=== PATIENT | female | born 1975 ===

== ENCOUNTER 2016-12-12 09:42 | Day surgery (SDC) | payer OTHER ==
[2016-12-12] MEDS ORDERED: PREGABALIN 150 MG CAP PO ONE (09:57)
[2016-12-12] MEDS ORDERED: ACETAMINOPHEN 500 MG TAB PO ONE (09:57)
[2016-12-12] MEDS ORDERED: ceFAZolin 2 GM/DEXTROSE 100 ML IV ONE (09:57)
--- NOTE | 2016-12-12 09:57 | PDGENHP ---
History and Physical - Chief Complaint LEFT HIP PAIN - History of Present Illness 1. Bilateral~Femoroacetabular impingement (JOSE) Cam type 2. Bilateral~Borderline Hip Dyplasia, labral tears, cartilage damage HISTORY OF PRESENT ILLNESS: Olgais a 41 y.o.~active female~who I have had the pleasure to consult on today.~I have enjoyed meeting her. She~lives in [facility]. 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 ~She~is ; she~has one~child. ~Olgaenjoys biking, hiking. Jennifer's left~hip pain started several years ago, with no~recalled trauma or injury, and with no~previous complaints.~Olgahas~a known history of hip dysplasia. Presentation today is of~anterior and lateral left~hip pain. ~The hip does~wake her~at night and does~click and catch on her. Sitting can be a real struggle~ for her. Olgadoes~report suffering from lower back pain episodes. Olgahas not~participated in physical therapy and has not~tried other conservative measures. Olgahas~utilized medication for pain management, including NSAID. Olgahas used medication intermittently for 2-3 years. Olgadenies issues with the right~hip. Although she thinks it is right at the start of becoming a little painful. Olgaunderstands that she~has a hip and pelvis problem which should be researched and wishes to get a better understanding of her~hip status, followed by an establishment of a treatment strategy, hoping sheJoewould be able to get back to her~well being active life. History: Past medical history: ~ None which is relevant Relevant familial history: Cancer, DM Past surgical history: None Olgahas never received general anesthesia. I have reviewed, verified and agree with the past medical, surgical, family and social history. Current Medications:Joehas a current medication list which includes the following prescription(s): zolpidem tartrate. ALLERGIES:~has No Known Allergies. Objective: Physical Examination: Olgais 5~feet 6~inches tall and weighs~170~Lbs. Olgais AAO x3; she~is well- nourished, in NAD. Skin is warm and dry. ~Breathing is non-labored. ~CV with RRR by pulse. Abdomen is soft, NTND. Currently, she~walks with a normal~gait. Trendelenburg sign is negative~and proprioception~is normal, both~sides. She~presents~with severe~signs of joint laxity.~Beightons Score: 7 Lower spine examination is negative~for sciatic or femoral nerve irritation with negative~SLR &~femoral stretch tests. Range of motion of the spine is normal~for flexion, extension, and rotations, with no~associated pain. Strength, Sensation and pulses are normal - bilaterally Ankles and knees exams are normal~and no~mal-alignment is evident. She~has~left~1~cm short leg length discrepancy. Thigh circumference is symmetric~with no evidence for muscle atrophy~on both~ sides. Hip ROM (degrees): FL ER At 90~hip FL IR At 90~hip FL AB AD EX IR Neutral hip ER Neutral hip R 110 55 40 45 15 5 55 45 L 115 55 45 45 10 5 60 35 Specific hip and pelvis tests: Quadrant LUCIANO Roll Add. Longus R +++ +++ Negative Negative L +++ +++ Negative + Glut. Med ITB Pos. Imp R Negative 5/5 strength Negative 5/5 strength Negative L Negative 5/5 strength Negative 5/5 strength +++ Squeeze test measured normal Bony Symphysis pubis is pain free~to touch while concentric activity of the rectus abdominis, does not~produce pain at its insertion. Ilio Psos specific tests are negative for pain during cycling for both hips~and remarkable for non painful snap~on the left HF has pain but good strength the left hip. Anterior and Lateral~capsule tenderness on both hips Greater trochanteric burse is painful~on the left hip. Piriformis tests: FAIR is negative, with no~local signs of neuritis related to sciatic nerve. SIJs examination is normal~with normal~LUCIANO in relation and local tenderness. Hamstrings tests are negative~functional contraction and negative~tendinopathy both hips. On a daily basis, the following percentages reflect Jennifer's overall total pain: Deep hip: 50% GT: 25% IP: 25% Imaging: Radiology studies which I~have personally reviewed, analyzed and measured are below: XR: AP of the hip and pelvis: Performed in a good~technique Coccyx to pubic symphysis distance 1.8~cm. 5~degrees caudal [place]~Lines are interrupted. Minimal~Pathological signs are seen in the Symphysis Pubis. Minimal~Pathological signs are seen at the Ischial~tuberosity. ~ Specific measurements show: NSA~ LCE Sourcil~Angle Sharp's angle Lat. Cam Lat. Pincer C.Over~sign Head~Coverage % ATDmm R N 23 7 40 - - - 68 N L N 21 8 43 - - - 70 N Pos. wall sign ISS NAD ~~Dysplasia Comments R + Negative 15~mm + L + Negative 14~mm + Sclerosis Sup. Lat. OA Cysts Joint Space-WBZ Joint Space-Medial R Negative Negative Negative 6.5~mm 5.5~mm L Negative Negative Negative 5.4~mm 5~mm X Table lateral: Anterior cam lesion is seen~on both hips. Alpha Angle: ~ Right 59~dergrees Left 63~degrees MRI Left Hip~shows:~labral tear, subchondral~cyst, cartilage intact CT MEASUREMENTS: Right hip: Lateral center edge angle: 22 degrees Anterior center edge angle: 52 degrees Equatorial acetabular version angle: 26 degrees anteverted. Cranial acetabular version angle: 4 degrees anteverted. Femoral neck shaft angle: 136 degrees Femoral neck version angle: 1 degree anteverted. Right femoral torsion measures 16 degrees. Left hip: Lateral center edge angle: 22 degrees Anterior center edge angle: 50 degrees Equatorial acetabular version angle: 20 degrees anteverted. Cranial acetabular version angle: 5 degrees anteverted. Femoral neck shaft angle: 137 degrees Femoral neck version angle: 1 degree anteverted. Left femoral torsion measures 18 degrees. Impression and plan:~ Jennifer~is a 41 y.o.~active female~suffering from symptomatic left~hip pain due to Bilateral~Femoroacetabular impingement (JOSE) Cam type, Bilateral~Borderline Hip Dyplasia~causing significant disability to her~and altering~her~sport and life activities. Physical examination, imaging, and her~story correspond with the diagnosis mentioned above. I explained that hip dysplasia is a condition wherein the hip joint has excessive play~and instability due to a variety of factors, including the depth and adequacy of the socket, the orientation of the femur bone, and ligament laxity around the hip joint. Dysplasia ranges in severity from borderline to brionna, with treatment options being specific to the specific nature of the problem. Left untreated, the instability in the hip joint can cause progressive tearing of the labrum and deterioration of the surface cartilage, ultimately resulting in progressive osteoarthritis of the hip. I explained that femoroacetabular impingement (JOSE - Cam type) arises due to a bony or soft tissue conflict between the femur (ball) and acetabulum (socket) caused by an abnormality in the shape of the femoral head and neck. Over time, repetitive impingement can result in damage to the labrum and adjacent surface cartilage within the socket, ultimately giving rise to progressive osteoarthritis of the hip. I explained that although a labral tear can be a source of pain, it is rarely the root of the problem and typically occurs secondary to an underlying abnormality in the shape and mechanics of the hip joint. I reviewed conservative treatment options for Dysplasia and JOSE including activity modification to avoid positions of impingement or instability, physical therapy, non-steroidal anti-inflammatory medications, and various injections (corticosteroid and PRP) aimed at reducing inflammation in the hip joint or/and preventing dynamic instability and impingement. PRP injections may promote healing and reduce symptoms in certain cases but it will not repair chronically damaged tissue. Although these measures may help to buy time~and reduce current level of symptoms, they are not a definitive solution to the problem given the underlying abnormality in the shape of the hip joint. Patients who have failed conservative management and continue to experience symptoms are candidates for definitive surgical treatment, which may consist of hip arthroscopy alone or in combination with more invasive bony realignment procedures of the hip socket and/or femur called periacetabular osteotomy (HOLGER) or derotational femoral osteotomy (DFO). Hip arthroscopy typically includes treating the labrum with either repair or reconstruction of the torn labrum; as well as addressing the underlying abnormalities by restoring the normal shape to the hip joint. If the cartilage is damaged a Microfracture surgical procedure may also be necessary to help stimulate the growth of fibrocartilage. If a patient requires a labral reconstruction or a Microfracture, the initial rehabilitation from the surgery may take longer, but the keno terminal operator results are typically favorable. I reviewed the technical aspects of periacetabular osteotomy (HOLGER) including risks, benefits, and expected course of recovery. Jennifer~understands that HOLGER is an inpatient procedure carried out through two medium sized incisions on the front and back of the hip joint. The hip socket is cut, realigned, and stabilized with 2 ~3 internal screws. Risks include infection, bleeding, injury to nearby nerves or vessels, stiffness, persistent pain, instability, failure of bony healing, implant related complications, and venous thromboembolic disease. Rarely, revision surgery may be required to address these problems. Risks, potential complications, side effects and recovery from surgical procedure were discussed in length. We explained how this surgery is an open procedure, and though patients tend to do well in the long-term, it involves significant pain in the first 2-4 weeks post-op and a rather lengthy rehab.~Overall recovery takes approximately 6 ~12~months depending on the extent of damage and degree of repair. Jennifer~understands that she~will undergo hip arthroscopy 1 week prior to the HOLGER to address damage inside the hip joint. Jennifer~understands that hip arthroscopy and HOLGER are two separate procedures that are best performed one week apart, with the arthroscopy commencing first to "tighten up" any pathology evident in the hip joint (labral repair, etc.) and the HOLGER open procedure occurring 7-10 days later to realign the acetabulum. I reviewed the technical aspects of hip arthroscopy including risks, benefits, and expected course of recovery. Jennifer~understands that hip arthroscopy is a minimally invasive outpatient procedure carried out through small incisions on the outer aspect of the hip joint. During surgery, the labral tear will be identified and either repaired or reconstructed~using bone anchors and suture material. Additionally, any excessive bone will be removed with a high-speed jarad to reshape the hip joint and restore normal anatomy. Risks include infection, bleeding, injury to nearby nerves or vessels, stiffness, persistent pain, instability, venous thromboembolic disease, and traction related complications including temporary foot numbness. Rarely, revision surgery may be required to address these problems. Overall recovery takes approximately 4~~ 8~months depending on the extent of damage and degree of repair. In the event that the labral tissue quality is inadequate for successful repair and healing, Jennifer~understands that a labral reconstruction will be performed. This procedure entails placing a cadaver tissue graft within the hip joint and stabilizing it with bone anchors to build a new labrum. The overall recovery time for labral reconstruction is similar to that of labral repair, although the surgical procedure takes longer to perform. Jennifer~will review the info presented. In order to obtain more detailed information regarding the alignment, orientation, and shape of the bony hip and pelvis I will order a CT scan to be performed. The results of the CT scan, including femoral torsion and acetabular version measured values and 3D images, will aid me in deciding on the best treatment strategy and surgical pre-planning. Olgawill talk with our surgical supplies sterilizer about possible surgery dates. Olgais happy with this plan. I have also supplied her~with handouts, outlining the expected surgical treatment and rehab involved. I wish~JenniferJoeall the best, ~~ Jr Meredith MD History Information - Allergies/Home Medication List Allergies/Adverse Reactions: No Known Allergies Allergy (Unverified 11/14/16 11:09) Home Medications: Amphet Asp and D/Amphet [Adderall 10 MG (*)] 10 mg PO TID 11/14/16 [Last Taken Unknown] Magnesium Oxide [Magnesium Oxide 400 mg (*)] 400 mg PO HS 11/14/16 [Last Taken Unknown] Zolpidem Tartrate [Ambien 5MG (*)] 10 mg PO HS 11/14/16 [Last Taken Unknown] I have personally reviewed and updated: medical history - Social History Smoking Status: Never smoked Review of Systems Review of Systems: Physical Exam Physical Exam:
--- NOTE | 2016-12-12 12:09 | PDANEPAE ---
ANE History of Present Illness 41 year old female with left hip pain presents for left hip arthroscopy with femoroplasty. ANE Past Medical History - Cardiovascular History Hx Hypertension: No Hx Arrhythmias: No Hx Chest Pain: No Hx Coronary Artery / Peripheral Vascular Disease: No Hx CHF / Valvular Disease: No Hx Palpitations: No - Pulmonary History Hx COPD: No Hx Asthma/Reactive Airway Disease: No Hx Recent Upper Respiratory Infection: No Hx Oxygen in Use at Home: No Hx Sleep Apnea: No Sleep Apnea Screening Result - Last Documented: Negative - Neurologic History Hx Cerebrovascular Accident: No Hx Seizures: No Hx Dementia: No - Endocrine History Hx Diabetes: No Hypothyroid: No Hyperthyroid: No Obesity: no - Renal History Hx Renal Disorders: Yes Renal History Comment: MULTIPLE UTIs - Liver History Hx Hepatic Disorders: No - Neurological & Psychiatric Hx Hx Neurological and Psychiatric Disorders: Yes Neurological / Psychiatric History Comment: ANXIETY & DEPRESSION - Cancer History Hx Cancer: No - Congenital Disorder History Hx Congenital Disorders: No - GI History GERD: no Hx Gastrointestinal Disorders: No - Other Health History Other Health History: PSORIASIS SCALP AND BACK - Chronic Pain History Chronic Pain: No - Surgical History Prior Surgeries: NONE ANE Review of Systems Review of Systems: - Exercise capacity Exercise capacity: >=4 METS METS (RN): 4 METS ANE Patient History - Allergies Allergies/Adverse Reactions: No Known Allergies Allergy (Unverified 11/14/16 11:09) - Home Medications Home medications: home medication list seen and reviewed Home Medications: Amphet Asp and D/Amphet [Adderall 10 MG (*)] 10 mg PO TID 11/14/16 [Last Taken Unknown] Magnesium Oxide [Magnesium Oxide 400 mg (*)] 400 mg PO HS 11/14/16 [Last Taken Unknown] Zolpidem Tartrate [Ambien 5MG (*)] 10 mg PO HS 11/14/16 [Last Taken Unknown] - NPO status NPO Status: no food or drink >8 hours - Anes Hx Anes Hx: no prior problems - Smoking Hx Smoking Status: Never smoked Marijuana use: No - Family Anes Hx Family Anes Hx: neg - N/A Family Hx Anesthesia Complications: NONE ANE Labs/Vital Signs - Vital Signs Vital Signs: reviewed preoperatively; see RN documention for details Height: 167.64 cm Weight: 74.843 kg ANE Physical Exam - Airway Neck exam: FROM Mallampati Score: Class 2 Mouth exam: normal dental/mouth exam - Pulmonary Pulmonary: no respiratory distress - Cardiovascular Cardiovascular: regular rate and rhythym - ASA Status ASA Status: I ANE Anesthesia Plan Anesthesia Plan: general endotracheal anesthesia Total IV Anesthesia: No
[2016-12-12] MEDS ORDERED: EPINEPHrine 30 MG/30 ML MDV ONE (12:34)
[2016-12-12] MEDS ORDERED: SCOPOLAMINE HYDROBROMIDE 1 MG/3 DAYS PATCH TD ONE (12:34)
[2016-12-12] MEDS ORDERED: MIDAZOLAM 2 MG/2 ML VIAL ONE (12:34)
[2016-12-12] MEDS ORDERED: BUPIVACAINE 0.25% 30 ML SDV ONE ×2 (12:34→13:17)
[2016-12-12] MEDS ORDERED: MIDAZOLAM 2 MG/2 ML VIAL IVP ONE (12:35)
[2016-12-12] MEDS ORDERED: PROPOFOL/EMULSION 500 MG/50 ML BOTTLE IV ONE (12:40)
[2016-12-12] MEDS ORDERED: fentaNYL 100 MCG/2 ML INJ ONE ×2 (12:41→15:22)
[2016-12-12] MEDS ORDERED: ROCURONIUM 100 MG/10 ML VIAL ONE (12:41)
[2016-12-12] MEDS ORDERED: PROPOFOL 200 MG/20 ML VIAL ONE (12:41)
[2016-12-12] MEDS ORDERED: LIDOCAINE 2% 5 ML SDV ONE (12:42)
[2016-12-12] MEDS ORDERED: SCOPOLAMINE HYDROBROMIDE 1 MG/3 DAYS PATCH TD SCH (12:45)
[2016-12-12] MEDS ORDERED: ONDANSETRON 4 MG/2 ML VIAL IVP PRN (13:54)
[2016-12-12] MEDS ORDERED: LR 500 ML IV PRN (13:54)
[2016-12-12] MEDS ORDERED: NALOXONE HCL 0.4 MG/ML INJ IVP PRN (13:54)
[2016-12-12] MEDS ORDERED: ONDANSETRON 4 MG/2 ML VIAL ONE (14:32)
[2016-12-12] MEDS ORDERED: SUGAMMADEX SODIUM 200 MG/2 ML VIAL IVP ONE (14:32)
[2016-12-12] MEDS ORDERED: ceFAZolin 1 GM VIAL ONE ×2 (14:43)
[2016-12-12] MEDS: fentaNYL 100 MCG/2 ML INJ IVP PRN ×2 (15:23→15:34)
[2016-12-12 15:44] VITALS: TEMP 98.4
[2016-12-12] MEDS ORDERED: OXYCODONE/APAP 5/325 TAB ONE ×2 (15:47→17:11)
[2016-12-12] MEDS ORDERED: HYDROmorphONE/DILAUDID 1 MG/ML INJ ONE (15:53)
[2016-12-12] MEDS: HYDROmorphONE/DILAUDID 1 MG/ML INJ IVP PRN ×2 (15:54→16:08)
[2016-12-12] MEDS: OXYCODONE/APAP 5/325 TAB PO PRN ×2 (15:56→17:12)
[2016-12-12 16:45] VITALS: RESP 14
[2016-12-12 16:54] VITALS: BP 94/71; PULSE 88; O2SAT 98
[2016-12-12] MEDS ORDERED: CEPACOL LOZENGE PO ONE ×2 (17:07→17:30)
--- NOTE | 2016-12-12 22:19 | POSTANESTH ---
Post Anesthetic Evaluation Cardiovascular Status: Normal, Stable, Similar to Pre-Op Cond Respiratory Status: Normal, Stable, Similar to Pre-op Cond. Level of Consciousness/Mental Status: Can Participate in Eval, Alert and Oriented Pain Control: Adequate, Prn Tx Ordered Nausea/Vomiting Control: Adequate, Prn Tx Ordered Complications Possibly Related to Anesthesia: None Noted
[2016-12-15] MEDS ORDERED: PATCH REMOVAL 1 EA PATCH TD SCH (12:35)
== END 2016-12-12 17:48 | disposition home or self-care (01) ==
LOC: FSGY 09:42
PROVIDERS: ATTEND Orthopaedic Surgery Sports Medicine
PROC: 0SQB4ZZ Repair Left Hip Joint, Percutaneous Endoscopic Approach (ICD-10-PCS; principal; 2016-12-12 15:15)
DX: M25.852 Other specified joint disorders, left hip (principal); Q65.89 Other specified congenital deformities of hip
CPT/HCPCS: C1713; C1769; J0690; J1170; J2250; J2405; J2704; J3010

== ENCOUNTER 2016-12-19 10:52 | Inpatient (IN) | payer OTHER ==
--- NOTE | 2016-12-15 08:54 | PDGENHP ---
History and Physical - Chief Complaint LEFT HIP PAIN - History of Present Illness 1. Bilateral~Femoroacetabular impingement (JOSE) Cam type 2. Bilateral~Borderline Hip Dyplasia, labral tears, cartilage damage HISTORY OF PRESENT ILLNESS: Olgais a 41 y.o.~active female~who I have had the pleasure to consult on today.~I have enjoyed meeting her. She~lives in [facility]. 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 ~She~is ; she~has one~child. ~Olgaenjoys biking, hiking. Jennifer's left~hip pain started several years ago, with no~recalled trauma or injury, and with no~previous complaints.~Olgahas~a known history of hip dysplasia. Presentation today is of~anterior and lateral left~hip pain. ~The hip does~wake her~at night and does~click and catch on her. Sitting can be a real struggle~ for her. Olgadoes~report suffering from lower back pain episodes. Olgahas not~participated in physical therapy and has not~tried other conservative measures. Olgahas~utilized medication for pain management, including NSAID. Olgahas used medication intermittently for 2-3 years. Olgadenies issues with the right~hip. Although she thinks it is right at the start of becoming a little painful. Olgaunderstands that she~has a hip and pelvis problem which should be researched and wishes to get a better understanding of her~hip status, followed by an establishment of a treatment strategy, hoping sheJoewould be able to get back to her~well being active life. History: Past medical history: ~ None which is relevant Relevant familial history: Cancer, DM Past surgical history: None Olgahas never received general anesthesia. I have reviewed, verified and agree with the past medical, surgical, family and social history. Current Medications:Joehas a current medication list which includes the following prescription(s): zolpidem tartrate. ALLERGIES:~has No Known Allergies. Objective: Physical Examination: Olgais 5~feet 6~inches tall and weighs~170~Lbs. Olgais AAO x3; she~is well- nourished, in NAD. Skin is warm and dry. ~Breathing is non-labored. ~CV with RRR by pulse. Abdomen is soft, NTND. Currently, she~walks with a normal~gait. Trendelenburg sign is negative~and proprioception~is normal, both~sides. She~presents~with severe~signs of joint laxity.~Beightons Score: 7 Lower spine examination is negative~for sciatic or femoral nerve irritation with negative~SLR &~femoral stretch tests. Range of motion of the spine is normal~for flexion, extension, and rotations, with no~associated pain. Strength, Sensation and pulses are normal - bilaterally Ankles and knees exams are normal~and no~mal-alignment is evident. She~has~left~1~cm short leg length discrepancy. Thigh circumference is symmetric~with no evidence for muscle atrophy~on both~ sides. Hip ROM (degrees): FL ER At 90~hip FL IR At 90~hip FL AB AD EX IR Neutral hip ER Neutral hip R 110 55 40 45 15 5 55 45 L 115 55 45 45 10 5 60 35 Specific hip and pelvis tests: Quadrant LUCIANO Roll Add. Longus R +++ +++ Negative Negative L +++ +++ Negative + Glut. Med ITB Pos. Imp R Negative 5/5 strength Negative 5/5 strength Negative L Negative 5/5 strength Negative 5/5 strength +++ Squeeze test measured normal Bony Symphysis pubis is pain free~to touch while concentric activity of the rectus abdominis, does not~produce pain at its insertion. Ilio Psos specific tests are negative for pain during cycling for both hips~and remarkable for non painful snap~on the left HF has pain but good strength the left hip. Anterior and Lateral~capsule tenderness on both hips Greater trochanteric burse is painful~on the left hip. Piriformis tests: FAIR is negative, with no~local signs of neuritis related to sciatic nerve. SIJs examination is normal~with normal~LUCIANO in relation and local tenderness. Hamstrings tests are negative~functional contraction and negative~tendinopathy both hips. On a daily basis, the following percentages reflect Jennifer's overall total pain: Deep hip: 50% GT: 25% IP: 25% Imaging: Radiology studies which I~have personally reviewed, analyzed and measured are below: XR: AP of the hip and pelvis: Performed in a good~technique Coccyx to pubic symphysis distance 1.8~cm. 5~degrees caudal [place]~Lines are interrupted. Minimal~Pathological signs are seen in the Symphysis Pubis. Minimal~Pathological signs are seen at the Ischial~tuberosity. ~ Specific measurements show: NSA~ LCE Sourcil~Angle Sharp's angle Lat. Cam Lat. Pincer C.Over~sign Head~Coverage % ATDmm R N 23 7 40 - - - 68 N L N 21 8 43 - - - 70 N Pos. wall sign ISS NAD ~~Dysplasia Comments R + Negative 15~mm + L + Negative 14~mm + Sclerosis Sup. Lat. OA Cysts Joint Space-WBZ Joint Space-Medial R Negative Negative Negative 6.5~mm 5.5~mm L Negative Negative Negative 5.4~mm 5~mm X Table lateral: Anterior cam lesion is seen~on both hips. Alpha Angle: ~ Right 59~dergrees Left 63~degrees MRI Left Hip~shows:~labral tear, subchondral~cyst, cartilage intact CT MEASUREMENTS: Right hip: Lateral center edge angle: 22 degrees Anterior center edge angle: 52 degrees Equatorial acetabular version angle: 26 degrees anteverted. Cranial acetabular version angle: 4 degrees anteverted. Femoral neck shaft angle: 136 degrees Femoral neck version angle: 1 degree anteverted. Right femoral torsion measures 16 degrees. Left hip: Lateral center edge angle: 22 degrees Anterior center edge angle: 50 degrees Equatorial acetabular version angle: 20 degrees anteverted. Cranial acetabular version angle: 5 degrees anteverted. Femoral neck shaft angle: 137 degrees Femoral neck version angle: 1 degree anteverted. Left femoral torsion measures 18 degrees. Impression and plan:~ Jennifer~is a 41 y.o.~active female~suffering from symptomatic left~hip pain due to Bilateral~Femoroacetabular impingement (JOSE) Cam type, Bilateral~Borderline Hip Dyplasia~causing significant disability to her~and altering~her~sport and life activities. Physical examination, imaging, and her~story correspond with the diagnosis mentioned above. I explained that hip dysplasia is a condition wherein the hip joint has excessive play~and instability due to a variety of factors, including the depth and adequacy of the socket, the orientation of the femur bone, and ligament laxity around the hip joint. Dysplasia ranges in severity from borderline to brionna, with treatment options being specific to the specific nature of the problem. Left untreated, the instability in the hip joint can cause progressive tearing of the labrum and deterioration of the surface cartilage, ultimately resulting in progressive osteoarthritis of the hip. I explained that femoroacetabular impingement (JOSE - Cam type) arises due to a bony or soft tissue conflict between the femur (ball) and acetabulum (socket) caused by an abnormality in the shape of the femoral head and neck. Over time, repetitive impingement can result in damage to the labrum and adjacent surface cartilage within the socket, ultimately giving rise to progressive osteoarthritis of the hip. I explained that although a labral tear can be a source of pain, it is rarely the root of the problem and typically occurs secondary to an underlying abnormality in the shape and mechanics of the hip joint. I reviewed conservative treatment options for Dysplasia and JOSE including activity modification to avoid positions of impingement or instability, physical therapy, non-steroidal anti-inflammatory medications, and various injections (corticosteroid and PRP) aimed at reducing inflammation in the hip joint or/and preventing dynamic instability and impingement. PRP injections may promote healing and reduce symptoms in certain cases but it will not repair chronically damaged tissue. Although these measures may help to buy time~and reduce current level of symptoms, they are not a definitive solution to the problem given the underlying abnormality in the shape of the hip joint. Patients who have failed conservative management and continue to experience symptoms are candidates for definitive surgical treatment, which may consist of hip arthroscopy alone or in combination with more invasive bony realignment procedures of the hip socket and/or femur called periacetabular osteotomy (HOLGER) or derotational femoral osteotomy (DFO). Hip arthroscopy typically includes treating the labrum with either repair or reconstruction of the torn labrum; as well as addressing the underlying abnormalities by restoring the normal shape to the hip joint. If the cartilage is damaged a Microfracture surgical procedure may also be necessary to help stimulate the growth of fibrocartilage. If a patient requires a labral reconstruction or a Microfracture, the initial rehabilitation from the surgery may take longer, but the buttermaker results are typically favorable. I reviewed the technical aspects of periacetabular osteotomy (HOLGER) including risks, benefits, and expected course of recovery. Jennifer~understands that HOLGER is an inpatient procedure carried out through two medium sized incisions on the front and back of the hip joint. The hip socket is cut, realigned, and stabilized with 2 ~3 internal screws. Risks include infection, bleeding, injury to nearby nerves or vessels, stiffness, persistent pain, instability, failure of bony healing, implant related complications, and venous thromboembolic disease. Rarely, revision surgery may be required to address these problems. Risks, potential complications, side effects and recovery from surgical procedure were discussed in length. We explained how this surgery is an open procedure, and though patients tend to do well in the long-term, it involves significant pain in the first 2-4 weeks post-op and a rather lengthy rehab.~Overall recovery takes approximately 6 ~12~months depending on the extent of damage and degree of repair. Jennifer~understands that she~will undergo hip arthroscopy 1 week prior to the HOLGER to address damage inside the hip joint. Jennifer~understands that hip arthroscopy and HOLGER are two separate procedures that are best performed one week apart, with the arthroscopy commencing first to "tighten up" any pathology evident in the hip joint (labral repair, etc.) and the HOLGER open procedure occurring 7-10 days later to realign the acetabulum. I reviewed the technical aspects of hip arthroscopy including risks, benefits, and expected course of recovery. Jennifer~understands that hip arthroscopy is a minimally invasive outpatient procedure carried out through small incisions on the outer aspect of the hip joint. During surgery, the labral tear will be identified and either repaired or reconstructed~using bone anchors and suture material. Additionally, any excessive bone will be removed with a high-speed jarad to reshape the hip joint and restore normal anatomy. Risks include infection, bleeding, injury to nearby nerves or vessels, stiffness, persistent pain, instability, venous thromboembolic disease, and traction related complications including temporary foot numbness. Rarely, revision surgery may be required to address these problems. Overall recovery takes approximately 4~~ 8~months depending on the extent of damage and degree of repair. In the event that the labral tissue quality is inadequate for successful repair and healing, Jennifer~understands that a labral reconstruction will be performed. This procedure entails placing a cadaver tissue graft within the hip joint and stabilizing it with bone anchors to build a new labrum. The overall recovery time for labral reconstruction is similar to that of labral repair, although the surgical procedure takes longer to perform. Jennifer~will review the info presented. In order to obtain more detailed information regarding the alignment, orientation, and shape of the bony hip and pelvis I will order a CT scan to be performed. The results of the CT scan, including femoral torsion and acetabular version measured values and 3D images, will aid me in deciding on the best treatment strategy and surgical pre-planning. Olgawill talk with our surgical garment fitter about possible surgery dates. Olgais happy with this plan. I have also supplied her~with handouts, outlining the expected surgical treatment and rehab involved. I wish~JenniferJoeall the best, ~~ Jr Meredith MD History Information - Allergies/Home Medication List Allergies/Adverse Reactions: No Known Allergies Allergy (Unverified 11/14/16 11:09) Home Medications: Amphet Asp and D/Amphet [Adderall 10 MG (*)] 10 mg PO TID 11/14/16 [Last Taken Unknown] Magnesium Oxide [Magnesium Oxide 400 mg (*)] 400 mg PO HS 11/14/16 [Last Taken Unknown] Zolpidem Tartrate [Ambien 5MG (*)] 10 mg PO HS 11/14/16 [Last Taken Unknown] I have personally reviewed and updated: medical history - Social History Smoking Status: Never smoked Review of Systems Review of Systems: Physical Exam Physical Exam:
[~2016-12-19 10:52] MED LIST: TRANEXAMIC ACID 1,000 MG in NS 100 ML IV ONE
[2016-12-19] MEDS ORDERED: CITRATE DEXTROSE SOLN 500 ML BAG ONE (11:05)
[2016-12-19] MEDS ORDERED: SCOPOLAMINE HYDROBROMIDE 1 MG/3 DAYS PATCH TD ONE (11:09)
[2016-12-19] MEDS ORDERED: ACETAMINOPHEN 500 MG TAB PO ONE (11:09)
[2016-12-19] MEDS ORDERED: ceFAZolin 2 GM/DEXTROSE 100 ML IV ONE (11:09)
[2016-12-19] MEDS ORDERED: PREGABALIN 150 MG CAP PO ONE (11:09)
[2016-12-19] MEDS ORDERED: ceFAZolin 2 GM in D5W 100 ML IV ONE (11:15)
[2016-12-19] MEDS ORDERED: ceFAZolin 2 GM/SWFI 2 GM/20 ML SYR IVP ONE ×2 (11:30)
[2016-12-19] MEDS ORDERED: LIDOCAINE 1% 2 ML INJ ONE (11:32)
[2016-12-19] MEDS ORDERED: MIDAZOLAM 2 MG/2 ML VIAL IVP ONE (11:48)
--- NOTE | 2016-12-19 11:49 | PDANEPAE ---
ANE History of Present Illness left hip dysplasia ANE Past Medical History - Cardiovascular History Hx Hypertension: No Hx Arrhythmias: No Hx Chest Pain: No Hx Coronary Artery / Peripheral Vascular Disease: No Hx CHF / Valvular Disease: No Hx Palpitations: No - Pulmonary History Hx COPD: No Hx Asthma/Reactive Airway Disease: No Hx Recent Upper Respiratory Infection: No Hx Oxygen in Use at Home: No Hx Sleep Apnea: No Sleep Apnea Screening Result - Last Documented: Negative - Neurologic History Hx Cerebrovascular Accident: No Hx Seizures: No Hx Dementia: No - Endocrine History Hx Diabetes: No - Renal History Hx Renal Disorders: Yes Renal History Comment: MULTIPLE UTIs - Liver History Hx Hepatic Disorders: No - Neurological & Psychiatric Hx Hx Neurological and Psychiatric Disorders: Yes Neurological / Psychiatric History Comment: ANXIETY & DEPRESSION - Cancer History Hx Cancer: No - Congenital Disorder History Hx Congenital Disorders: No - GI History GERD: mild Hx Gastrointestinal Disorders: No - Other Health History Other Health History: PSORIASIS SCALP AND BACK - Chronic Pain History Chronic Pain: No - Surgical History Prior Surgeries: NONE ANE Review of Systems Review of Systems: - Exercise capacity METS (RN): 4 METS ANE Patient History - Allergies Allergies/Adverse Reactions: No Known Allergies Allergy (Unverified 11/14/16 11:09) - Home Medications Home Medications: Amphet Asp and D/Amphet [Adderall 10 MG (*)] 10 mg PO TID 11/14/16 [Last Taken 12/05/16] Magnesium Oxide [Magnesium Oxide 400 mg (*)] 400 mg PO HS 11/14/16 [Last Taken 12/05/16] Zolpidem Tartrate [Ambien 5MG (*)] 10 mg PO HS 11/14/16 [Last Taken 12/18/16] Omeprazole 12/19/16 [Last Taken 12/19/16 08:30] - NPO status NPO Since - Liquids (Date): 12/19/16 NPO Since - Liquids (Time): 09:30 NPO Since - Solids (Date): 12/18/16 NPO Since - Solids (Time): 22:00 - Smoking Hx Smoking Status: Never smoked - Family Anes Hx Family Hx Anesthesia Complications: NONE ANE Labs/Vital Signs - Vital Signs Blood Pressure: 115/93 Heart Rate: 98 Respiratory Rate: 14 O2 Sat (%): 97 Height: 167.64 cm Weight: 74.843 kg ANE Physical Exam - [facility] Mouth exam: normal dental/mouth exam - Pulmonary Pulmonary: no respiratory distress - Cardiovascular Cardiovascular: regular rate and rhythym - ASA Status ASA Status: II ANE Anesthesia Plan Anesthesia Plan: general endotracheal anesthesia, epidural
[2016-12-19] MEDS ORDERED: LR 1,000 ML IV ONE (11:50)
[2016-12-19 11:55] LABS: % IMMATURE GRANULYOCYTES 0.6 % (0.0-1.1); ABSOLUTE IMMATURE GRANULOCYTES 0.05 10^3/uL (0.00-0.10); ADD DIFF? NO; ADD MORPH? NO; ADD SCAN? NO; ATYPICAL LYMPHOCYTE FLAG 20 (0-99); FRAGMENT RBC FLAG 0 (0-99); HEMATOCRIT 42.4 % (38.0-47.0); HEMOGLOBIN 14.9 g/dL (12.6-16.3); LEFT SHIFT FLG 0 (0-99); LIPEMIA HEMOLYSIS FLAG 90 (0-99); MEAN CELL HEMOGLOBIN 33.4 pg (27.9-34.1); MEAN CELL HEMOGLOBIN CONCENTR. 35.1 g/dL (32.4-36.7); MEAN CELL VOLUME 95.1 fL (81.5-99.8); MEAN PLATELET VOLUME 9.4 fL (8.7-11.7); PLATELET CLUMPS FLAG 0 (0-99); PLATELET COUNT 294 10^3/uL (150-400); RED BLOOD CELL COUNT 4.46 10^6/uL (4.18-5.33); RED CELL DISTRIBUTION WIDTH 11.9 % (11.5-15.2)
[2016-12-19] MEDS ORDERED: fentaNYL 100 MCG/2 ML INJ ONE ×3 (12:48→17:55)
[2016-12-19] MEDS ORDERED: ROCURONIUM 100 MG/10 ML VIAL ONE (12:48)
[2016-12-19] MEDS ORDERED: HYDROmorphONE/DILAUDID 2 MG/ML INJ ONE (12:48)
[2016-12-19] MEDS ORDERED: DEXAMETHASONE 4 MG/ML VIAL ONE (12:49)
[2016-12-19] MEDS ORDERED: PROPOFOL 200 MG/20 ML VIAL ONE (12:49)
[2016-12-19] MEDS ORDERED: ONDANSETRON 4 MG/2 ML VIAL ONE (12:49)
[2016-12-19] MEDS ORDERED: LIDOCAINE 2% 5 ML SDV ONE ×3 (12:49)
[2016-12-19] MEDS ORDERED: TRANEXAMIC ACID 1,000 MG/10 ML VIAL ONE (13:10)
[2016-12-19] MEDS ORDERED: NALOXONE HCL 0.4 MG/ML INJ IVP PRN ×2 (16:07→16:17)
[2016-12-19] MEDS ORDERED: PROMETHAZINE HCL 25 MG/ML INJ IVP PRN (16:07)
[2016-12-19] MEDS ORDERED: ONDANSETRON 4 MG/2 ML VIAL IVP PRN ×3 (16:07→17:15)
[2016-12-19] MEDS ORDERED: MEPERIDINE 25 MG/ML SYR IVP PRN (16:07)
[2016-12-19] MEDS ORDERED: HYDROCODONE/APAP 5/325 TAB PO PRN (16:07)
[2016-12-19] MEDS ORDERED: NARCOTIC DRIP BAG-TOTAL ALL TYPES EP PRN (16:17)
[2016-12-19] MEDS ORDERED: diphenhydrAMINE 25 MG CAP PO PRN (16:17)
[2016-12-19] MEDS ORDERED: POLYETHYLENE GLYCOL 3350 17 GM PKT PO PRN (17:15)
[2016-12-19] MEDS ORDERED: MAGNESIUM HYDROXIDE 30 ML UDCUP PO PRN (17:15)
[2016-12-19] MEDS ORDERED: LACTULOSE 20 GM/30 ML UDCUP PO PRN (17:15)
[2016-12-19] MEDS ORDERED: BISACODYL 10 MG SUPP PR PRN (17:15)
[2016-12-19] MEDS ORDERED: ONDANSETRON DISINTEGRATING 4 MG TAB PO PRN (17:15)
--- NOTE | 2016-12-19 17:42 | POSTANESTH ---
Post Anesthetic Evaluation Cardiovascular Status: Normal, Stable Respiratory Status: Normal, Stable Level of Consciousness/Mental Status: Can Participate in Eval Pain Control: Adequate, Prn Tx Ordered Nausea/Vomiting Control: Adequate, Prn Tx Ordered Complications Possibly Related to Anesthesia: None Noted
[2016-12-19] MEDS ORDERED: HYDROmorphONE/DILAUDID 1 MG/ML INJ ONE (17:56)
[2016-12-19] MEDS: HYDROmorphONE/DILAUDID 1 MG/ML INJ IVP PRN ×3 (17:57→18:23)
[2016-12-19] MEDS: fentaNYL 100 MCG/2 ML INJ IVP PRN ×2 (17:57→18:10)
[2016-12-19] MEDS: fentaNYL 2MCG/ML/BUP 0.1% RTU 100 ML EP SCH ×2 (18:18→21:57)
--- NOTE | 2016-12-19 19:59 | SUROPNOTE ---
NIGEL Operative Report - Surgery Surgery was performed in [facility] 12/19/16 Diagnosis: Left 1. Hip Acetabular Dysplasia ~ Operation: Left~Diana Acetabular Osteotomy (HOLGER) Surgeon: Joe Caraballo MD Thermo Cementing Folder Operator:~~Solomon MCLAUGHLIN Anesthetic: General + epidural Procedure: General anesthetic. Antibiotics given. Cell saver in use. Fluoroscopy. Phase 1: Position lateral, diagonal skin incision between ischial tuberosity and greater trochanter as for posterior hip approach. Blunt split of glut max fibers. Identification of fat pad overlying sciatic nerve. Exposure of sciatic nerve under fat pad, gently retracting it away-medially to ischial tuberosity. Exposure of subcotoloid fossa proximal to short rotators. Using osteotomes and under fluoroscopy, osteotomy of subcotoloid fossa to sciatic notch proximal to ischial spine. Closure of lateral cut. Patient is turned supine. Phase 2: Skin incision just distal to ASIS. Using diathermy the iliac spine was exposed and inguinal ligament + Sartorious were retracted medially, taking the LFCN with them, protecting it. Inner ilium was dissected from iliacus muscle bluntly , with a cob and swab. Dissection continued towards lateral superior ramus pubis. Using fluoroscopy an osteotomy of lateral superior ramus, just medial to tear drop, was performed with curved fish mouth osteotome. Phase 3: Osteotomy lines of the ilium were marked with diathermy as pre planned according to XR/CT and expected correction of acatabulum. 2 Shanz screws were drilled into central acetabular fragment, corresponding with planned correction angles, in order to mobilize central acetabular fragment after osteotomy is complete. ~Iliac osteotomy was performed with reciprocating saw and the main acetabular fragment was moved to realign weight bearing position. After confirmation of correction using fluoroscopy in AP and false profile planes, the fragment was fixed with 3 - 5.5mm ~full threaded~screws~. Inguinal ligament and Sartorious were attached back to ASIS through drill holes. Incision was closed according to soft tissue layers. Skin was closed with subdermal Monocryl. Final fluoro shots were obtained to confirm position/correction. After surgery Jennifer~moved both lower limbs and had no NV motor compromise. Evaluation under anesthesia: IR at 90 degrees hip flexion prior to HOLGER was 30~degrees and after HOLGER was 20~ degrees. Bleedin~cc into cell-saver, 135~of blood products were returned to patient. Post op instructions: 1. Non~weight bearing crutches for 6 weeks 2. Epidural analgesia for 24-48 hours 3. Continuous SCD 4. Aspirin 81 mg X1 day once Epidural is discontinued 5. Avoid hip flexion past 90 and hip External rotation. 6. PT according to my recommendations at follow up visit Kind regards, Dr. Joe Caraballo
[2016-12-19] MEDS: ADDERALL 10 MG TAB PO SCH (21:21)
[2016-12-19] MEDS: SENNOSIDES/DOCUSATE SODIUM TAB PO SCH (21:23)
[2016-12-19] MEDS: PATCH REMOVAL 1 EA PATCH TD SCH (21:23)
[2016-12-19] MEDS: DIAZEPAM 2 MG TAB PO PRN (21:28)
[2016-12-20] MEDS: fentaNYL 2MCG/ML/BUP 0.1% RTU 100 ML EP SCH ×3 (04:30→18:34)
[2016-12-20] MEDS ORDERED: NS 250 ML IV ONE (05:30)
[2016-12-20 05:53] LABS: HEMATOCRIT 31.9 % (38.0-47.0); HEMOGLOBIN 11.2 g/dL (12.6-16.3); MEAN CELL HEMOGLOBIN 32.9 pg (27.9-34.1); MEAN CELL HEMOGLOBIN CONCENTR. 35.1 g/dL (32.4-36.7); MEAN CELL VOLUME 93.8 fL (81.5-99.8); RED BLOOD CELL COUNT 3.4 10^6/uL (4.18-5.33); RED CELL DISTRIBUTION WIDTH 11.8 % (11.5-15.2)
[2016-12-20 06:04] LABS: ANION GAP 7 mEq/L (8-16); CALCIUM 8.6 mg/dL (8.5-10.4); CARBON DIOXIDE 24 mEq/l (22-31); CHLORIDE 103 mEq/L (97-110); CREATININE 0.9 mg/dL (0.6-1.0); GLOMERULAR FILTRATION RATE > 60; GLUCOSE 107 mg/dL (70-100); POTASSIUM 4.5 mEq/L (3.5-5.2); SODIUM 134 mEq/L (134-144)
[2016-12-20] MEDS: SENNOSIDES/DOCUSATE SODIUM TAB PO SCH ×2 (08:26→20:50)
[2016-12-20] MEDS: ADDERALL 10 MG TAB PO SCH ×3 (08:37→22:23)
[2016-12-20] MEDS: REGARDING ANTICOAG MISC SCH (08:37)
[2016-12-20] MEDS: DC NARCS MISC SCH (08:37)
--- NOTE | 2016-12-20 14:35 | ASMTCMCOM ---
CM Note CM Note Notes: Patient is POD #[address] Rupinder Patel. I spoke with patient who says she will be staying with a friend in [place] until her two week follow up appointment. At this appointment, Dr Rupinder Patel will give her instructions for PT/Ot. Patient feels comfortable with this plan. CM available if needs change. Date Signed: 12/20/2016 02:34 PM Electronically Signed By:Yuliya Escobar RN
--- NOTE | 2016-12-20 20:41 | SOAPPROG ---
IRVING Progress Note Assessment/Plan: Assessment: 1 day post op Left Periacetabular Osteotomy Plan: Wean down and off epidural tomorrow Transition to oral analgesics Up with PT/OT for crutch training Pelvis Xray on 12/20/16 20:38 Subjective: Jennifer is doing quite well this evening. Her epidural was turned down to 5 and she appears well pain managed at this dosage thus far. She is having some numbness in both legs, much more on operative side. She was up to the side of the bed today, denies any cp, no sob or nausea. Objective: Vital Signs Temp Pulse Resp BP Pulse Ox 37.0 C 110 H 19 94/60 L 97 12/20/16 20:00 12/20/16 20:00 12/20/16 20:00 12/20/16 20:00 12/20/16 20:00 Laboratory Results 12/20/16 05:25 12/20/16 05:25 12/19/16 12/20/16 12/21/16 05:59 05:59 05:59 Intake Total 2950 699 Output Total 1550 1200 Balance 1400 -501 Well appearing in NAD Left hip: dressings clean dry intact scattered ecchymosis some edema limited ROM of LLE, likely due to epidural effect - Pending Discharge Pending Discharge Within 48 Hours: Yes Pending Discharge Date: 12/22/16 Pending Discharge Time: 11:00 ICD10 Worksheet Patient Problems: Problems Problem Status Onset Post-operative pain Acute - ICD10 Problem Qualifiers (1) Post-operative pain
[2016-12-20] MEDS: PATCH REMOVAL 1 EA PATCH TD SCH (20:49)
[2016-12-20] MEDS: ACETAMINOPHEN 325 MG TAB PO PRN (20:50)
--- NOTE | 2016-12-20 21:06 | POSTANESTH ---
Post Anesthetic Evaluation Cardiovascular Status: Normal, Stable Respiratory Status: Normal, Stable Level of Consciousness/Mental Status: Can Participate in Eval Pain Control: Adequate, Prn Tx Ordered Nausea/Vomiting Control: Adequate, Prn Tx Ordered Complications Possibly Related to Anesthesia: None Noted (pain 4/10. no complications related to epidural at this time)
[2016-12-20] MEDS: DIAZEPAM 2 MG TAB PO PRN (22:58)
[2016-12-21] MEDS: fentaNYL 2MCG/ML/BUP 0.1% RTU 100 ML EP SCH (03:44)
[2016-12-21] MEDS: ADDERALL 10 MG TAB PO SCH ×3 (08:13→21:40)
[2016-12-21] MEDS: REGARDING ANTICOAG MISC SCH (08:13)
[2016-12-21] MEDS: DC NARCS MISC SCH (08:13)
--- NOTE | 2016-12-21 09:43 | SOAPPROG ---
SOAP Progress Note Assessment/Plan: Assessment: 41 yo F POD#2 s/p L HOLGER, doing well overall Plan: 12/21/16 09:37 - wean off epidural with discontinuation today; oral dilaudid ordered - new IV site to be placed today - PT/OT - oconnor out after epidural d/c'ed - bowel regimen and regular diet - XR tomorrow - anticipate d/c to home Monday Subjective: Having pain at IV site overnight. No n/v. Tolerating regular diet. Objective: Vital Signs Temp Pulse Resp BP Pulse Ox 36.9 C 102 H 16 96/52 L 96 12/21/16 06:00 12/21/16 08:00 12/21/16 08:00 12/21/16 08:00 12/21/16 08:00 Laboratory Results 12/20/16 05:25 12/20/16 05:25 12/20/16 12/21/16 12/22/16 05:59 05:59 05:59 Intake Total 2950 1699 Output Total 1550 2350 Balance 1400 -651 GEN - NAD, AO Abdomen - soft, NT, ND BLE - dressings dry and intact - able to flex quads and adductors against resistance, 3/5 dorsiflexion on L compared to R, 5/5 plantar flexion - SILT L5 - S1, mild decrease in LFCN on L - palpable dp and pt pulses, BCR ICD10 Worksheet Patient Problems: Problems Problem Status Onset Post-operative pain Acute
[2016-12-21] MEDS: DIAZEPAM 2 MG TAB PO PRN ×2 (10:15→21:36)
[2016-12-21] MEDS: SENNOSIDES/DOCUSATE SODIUM TAB PO SCH ×2 (10:15→21:36)
[2016-12-21] MEDS: HYDROmorphONE/DILAUDID 2 MG TAB PO SCH ×5 (10:16→21:36)
[2016-12-21] MEDS: ACETAMINOPHEN 325 MG TAB PO PRN (10:29)
[2016-12-21] MEDS: ASPIRIN EC 81 MG TAB PO SCH (18:18)
[2016-12-21] MEDS ORDERED: HYDROmorphONE/DILAUDID 2 MG TAB PO PRN (19:10)
--- NOTE | 2016-12-21 20:49 | SOAPPROG ---
IRVING Progress Note Assessment/Plan: Assessment: Plan: 12/21/16 20:48 Saw patient tonight POD 2 Epi+folly out doing well pain nelson, NV intact tomorrow XR and discharge when ready, probably Monday Dr Caraballo Objective: Vital Signs Temp Pulse Resp BP Pulse Ox 37.0 C 51 L 16 132/79 H 93 12/21/16 15:52 12/21/16 15:52 12/21/16 15:52 12/21/16 15:52 12/21/16 15:52 Laboratory Results 12/20/16 05:25 12/20/16 05:25 12/20/16 12/21/16 12/22/16 05:59 05:59 05:59 Intake Total 2950 1699 1500 Output Total 1550 2350 350 Balance 1400 -651 1150 ICD10 Worksheet Patient Problems: Problems Problem Status Onset Post-operative pain Acute
[2016-12-21] MEDS: PATCH REMOVAL 1 EA PATCH TD SCH (21:40)
[2016-12-22] MEDS: HYDROmorphONE/DILAUDID 2 MG TAB PO SCH ×6 (01:33→21:48)
[2016-12-22] MEDS: ACETAMINOPHEN 325 MG TAB PO PRN (07:29)
[2016-12-22] MEDS: ADDERALL 10 MG TAB PO SCH ×3 (07:32→21:44)
[2016-12-22] MEDS: SENNOSIDES/DOCUSATE SODIUM TAB PO SCH ×2 (08:30→20:40)
[2016-12-22] MEDS: ASPIRIN EC 81 MG TAB PO SCH (08:30)
[2016-12-22] MEDS: DIAZEPAM 2 MG TAB PO PRN ×3 (08:44→21:47)
--- NOTE | 2016-12-22 19:59 | SOAPPROG ---
SOJAMAAL Progress Note Assessment/Plan: Assessment: 3rd post op day Left Periacetabular Osteotomy Plan: Up with PT/OT for crutch training DC home tomorrow 12/20/16 20:38 12/22/16 19:56 Subjective: Jennifer is doing quite well this evening. Her pain has been well managed with oral Dilaudid and Valium, she's been out of bed several times today, and will be ready to go home tomorrow. She denies any cp, sob or nausea. Objective: Vital Signs Temp Pulse Resp BP Pulse Ox 37.4 C 106 H 16 106/77 94 12/22/16 15:12 12/22/16 15:12 12/22/16 15:12 12/22/16 15:12 12/22/16 15:12 Laboratory Results 12/20/16 05:25 12/20/16 05:25 12/21/16 12/22/16 12/23/16 05:59 05:59 05:59 Intake Total 1699 1500 Output Total 2350 950 2 Balance -651 550 -2 Well appearing in NAD Left Hip: dressings clean dry intact surrounding ecchymosis and edema NVI distally Full ROM of foot and ankle - Pending Discharge Pending Discharge Within 24 Hours: Yes Pending Discharge Date: 12/23/16 Pending Discharge Time: 11:00 ICD10 Worksheet Patient Problems: Problems Problem Status Onset Post-operative pain Acute - ICD10 Problem Qualifiers (1) Post-operative pain
[2016-12-22] MEDS: NAPROXEN SODIUM 220 MG TAB PO PRN (20:39)
[2016-12-22] MEDS: PATCH REMOVAL 1 EA PATCH TD SCH (20:41)
[2016-12-22 23:56] VITALS: PULSE 106
[2016-12-23] MEDS: HYDROmorphONE/DILAUDID 2 MG TAB PO SCH ×3 (01:58→10:25)
[2016-12-23 07:41] VITALS: BP 104/58; RESP 17; TEMP 98.5; O2SAT 95
[2016-12-23] MEDS: ADDERALL 10 MG TAB PO SCH (08:39)
[2016-12-23] MEDS: ASPIRIN EC 81 MG TAB PO SCH (08:40)
[2016-12-23] MEDS: SENNOSIDES/DOCUSATE SODIUM TAB PO SCH (08:40)
[2016-12-23] MEDS: DIAZEPAM 2 MG TAB PO PRN (08:50)
[2016-12-23] MEDS: NAPROXEN SODIUM 220 MG TAB PO PRN (08:55)
[2016-12-23] MEDS ORDERED: HYDROmorphONE/DILAUDID 4 MG TAB PO SCH (10:00)
--- NOTE | 2016-12-23 12:23 | ASDISCHSUM ---
Discharge Information Plan Status:Home with No Needs Medically Cleared to Leave: Discharge Date:12/23/2016 11:51 AM CM D/C Disposition:Home, Routine, Self-Care ADT D/C Disposition:Home, Routine, Self-Care Projected Discharge Date:12/23/2016 11:51 AM Transportation at D/C: Discharge Delay Reason: Follow-Up Date:12/23/2016 11:51 AM Discharge Slot: Final Diagnosis: Placement Information Patient Contact Information Contact Name:BARBARA Relationship:Mother Address: Work Phone: City: [facility] Phone: State/Zip Code: Email: Financial Information Financial Class:[facility] Primary Plan Desc:LUIS [employer] HMO OPEN ACC LOCAL Primary Plan Number:[id number] Secondary Plan Desc: Secondary Plan Number: Assessment Information [facility] CM Progress Note CM Note CM Note Notes: Patient is POD #[address] Rupinder Patel. I spoke with patient who says she will be staying with a friend in [place] until her two week follow up appointment. At this appointment, Dr Rupinder Patel will give her instructions for PT/Ot. Patient feels comfortable with this plan. CM available if needs change. Date Signed: 12/20/2016 02:34 PM Electronically Signed By:Yuliya Escobar RN Intervention Information
== END 2016-12-23 11:51 | disposition home or self-care (01) | DRG 517 ==
LOC: F3N 10:52
PROVIDERS: ADMIT Orthopaedic Surgery Sports Medicine; ATTEND Orthopaedic Surgery Sports Medicine
PROC: 0QS504Z Reposition Left Acetabulum with Internal Fixation Device, Open Approach (ICD-10-PCS; principal; 2016-12-19 12:30)
DX: Q65.89 Other specified congenital deformities of hip (principal); M25.852 Other specified joint disorders, left hip; M25.851 Other specified joint disorders, right hip
CPT/HCPCS: 97116-GP; 97161-GP; 97165-GO; 97530-GP; 97535-GO; C1713; J0690; J1100; J1170; J2250; J2405; J2704; J3010; J7060

== ENCOUNTER 2017-06-16 05:52 | Day surgery (SDC) | payer OTHER ==
--- NOTE | 2017-06-15 21:12 | PDGENHP ---
History and Physical - Chief Complaint Left Hip Pain - History of Present Illness 1. Bilateral~Femoroacetabular impingement (JOSE) Cam type 2. Bilateral~Borderline Hip Dyplasia, labral tears, cartilage damage HISTORY OF PRESENT ILLNESS: Olgais a 41 y.o.~active female~who I have had the pleasure to consult on today. I have enjoyed meeting her. She~lives in [facility]. 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 ~She~is ; she~has one~child. ~Olgaenjoys biking, hiking. Jennifer's left~hip pain started several years ago, with no~recalled trauma or injury, and with no~previous complaints. Olgahas~a known history of hip dysplasia. Presentation today is of anterior and lateral left~hip pain. ~The hip does~wake her~at night and does~click and catch on her. Sitting can be a real struggle~ for her. Olgadoes~report suffering from lower back pain episodes. Olgahas not~participated in physical therapy and has not~tried other conservative measures. Olgahas~utilized medication for pain management, including NSAID. Olgahas used medication intermittently for 2-3 years. Olgadenies issues with the right~hip. Although she thinks it is right at the start of becoming a little painful. Olgaunderstands that she~has a hip and pelvis problem which should be researched and wishes to get a better understanding of her~hip status, followed by an establishment of a treatment strategy, hoping sheJoewould be able to get back to her~well being active life. History: Past medical history: ~ None which is relevant Relevant familial history: Cancer, DM Past surgical history: None Olgahas never received general anesthesia. I have reviewed, verified and agree with the past medical, surgical, family and social history. Current Medications:Joehas a current medication list which includes the following prescription(s): zolpidem tartrate. ALLERGIES:Joehas No Known Allergies. Objective: Physical Examination: Olgais 5~feet 6~inches tall and weighs 170~Lbs. lOgais AAO x3; she~is well- nourished, in NAD. Skin is warm and dry. ~Breathing is non-labored. ~CV with RRR by pulse. Abdomen is soft, NTND. Currently, she~walks with a normal~gait. Trendelenburg sign is negative~and proprioception is normal, both~sides. She~presents with severe~signs of joint laxity. Beightons Score: 7 Lower spine examination is negative~for sciatic or femoral nerve irritation with negative~SLR &~femoral stretch tests. Range of motion of the spine is normal~for flexion, extension, and rotations, with no~associated pain. Strength, Sensation and pulses are normal - bilaterally Ankles and knees exams are normal~and no~mal-alignment is evident. She~has~left~1~cm short leg length discrepancy. Thigh circumference is symmetric~with no evidence for muscle atrophy~on both~ sides. Hip ROM (degrees): FL ER At 90~hip FL IR At 90~hip FL AB AD EX IR Neutral hip ER Neutral hip R 110 55 40 45 15 5 55 45 L 115 55 45 45 10 5 60 35 Specific hip and pelvis tests: Quadrant LUCIANO Roll Add. Longus R +++ +++ Negative Negative L +++ +++ Negative + Glut. Med ITB Pos. Imp R Negative 5/5 strength Negative 5/5 strength Negative L Negative 5/5 strength Negative 5/5 strength +++ Squeeze test measured normal Bony Symphysis pubis is pain free~to touch while concentric activity of the rectus abdominis, does not~produce pain at its insertion. Ilio Psos specific tests are negative for pain during cycling for both hips~and remarkable for non painful snap~on the left HF has pain but good strength the left hip. Anterior and Lateral~capsule tenderness on both hips Greater trochanteric burse is painful~on the left hip. Piriformis tests: FAIR is negative, with no~local signs of neuritis related to sciatic nerve. SIJs examination is normal~with normal~LUCIANO in relation and local tenderness. Hamstrings tests are negative~functional contraction and negative~tendinopathy both hips. On a daily basis, the following percentages reflect Jennifer's overall total pain: Deep hip: 50% GT: 25% IP: 25% Imaging: Radiology studies which I have personally reviewed, analyzed and measured are below: XR: AP of the hip and pelvis: Performed in a good~technique Coccyx to pubic symphysis distance 1.8~cm. 5~degrees caudal [place] Lines are interrupted. Minimal~Pathological signs are seen in the Symphysis Pubis. Minimal~Pathological signs are seen at the Ischial tuberosity. ~ Specific measurements show: NSA~ LCE Sourcil~Angle Sharp's angle Lat. Cam Lat. Pincer C.Over~sign Head~Coverage % ATDmm R N 23 7 40 - - - 68 N L N 21 8 43 - - - 70 N Pos. wall sign ISS NAD ~~Dysplasia Comments R + Negative 15~mm + L + Negative 14~mm + Sclerosis Sup. Lat. OA Cysts Joint Space-WBZ Joint Space-Medial R Negative Negative Negative 6.5~mm 5.5~mm L Negative Negative Negative 5.4~mm 5~mm X Table lateral: Anterior cam lesion is seen~on both hips. Alpha Angle: ~ Right 59~dergrees Left 63~degrees MRI Left Hip~shows:~labral tear, subchondral~cyst, cartilage intact CT MEASUREMENTS: Right hip: Lateral center edge angle: 22 degrees Anterior center edge angle: 52 degrees Equatorial acetabular version angle: 26 degrees anteverted. Cranial acetabular version angle: 4 degrees anteverted. Femoral neck shaft angle: 136 degrees Femoral neck version angle: 1 degree anteverted. Right femoral torsion measures 16 degrees. Left hip: Lateral center edge angle: 22 degrees Anterior center edge angle: 50 degrees Equatorial acetabular version angle: 20 degrees anteverted. Cranial acetabular version angle: 5 degrees anteverted. Femoral neck shaft angle: 137 degrees Femoral neck version angle: 1 degree anteverted. Left femoral torsion measures 18 degrees. Impression and plan: Jennifer~is a 41 y.o.~active female~suffering from symptomatic left~hip pain due to Bilateral~Femoroacetabular impingement (JOSE) Cam type, Bilateral~Borderline Hip Dyplasia~causing significant disability to her~and altering her~sport and life activities. Physical examination, imaging, and her~story correspond with the diagnosis mentioned above. I explained that hip dysplasia is a condition wherein the hip joint has excessive play~and instability due to a variety of factors, including the depth and adequacy of the socket, the orientation of the femur bone, and ligament laxity around the hip joint. Dysplasia ranges in severity from borderline to brionna, with treatment options being specific to the specific nature of the problem. Left untreated, the instability in the hip joint can cause progressive tearing of the labrum and deterioration of the surface cartilage, ultimately resulting in progressive osteoarthritis of the hip. I explained that femoroacetabular impingement (JOSE - Cam type) arises due to a bony or soft tissue conflict between the femur (ball) and acetabulum (socket) caused by an abnormality in the shape of the femoral head and neck. Over time, repetitive impingement can result in damage to the labrum and adjacent surface cartilage within the socket, ultimately giving rise to progressive osteoarthritis of the hip. I explained that although a labral tear can be a source of pain, it is rarely the root of the problem and typically occurs secondary to an underlying abnormality in the shape and mechanics of the hip joint. I reviewed conservative treatment options for Dysplasia and JOSE including activity modification to avoid positions of impingement or instability, physical therapy, non-steroidal anti-inflammatory medications, and various injections (corticosteroid and PRP) aimed at reducing inflammation in the hip joint or/and preventing dynamic instability and impingement. PRP injections may promote healing and reduce symptoms in certain cases but it will not repair chronically damaged tissue. Although these measures may help to buy time~and reduce current level of symptoms, they are not a definitive solution to the problem given the underlying abnormality in the shape of the hip joint. Patients who have failed conservative management and continue to experience symptoms are candidates for definitive surgical treatment, which may consist of hip arthroscopy alone or in combination with more invasive bony realignment procedures of the hip socket and/or femur called periacetabular osteotomy (HOLGER) or derotational femoral osteotomy (DFO). Hip arthroscopy typically includes treating the labrum with either repair or reconstruction of the torn labrum; as well as addressing the underlying abnormalities by restoring the normal shape to the hip joint. If the cartilage is damaged a Microfracture surgical procedure may also be necessary to help stimulate the growth of fibrocartilage. If a patient requires a labral reconstruction or a Microfracture, the initial rehabilitation from the surgery may take longer, but the skilled nursing results are typically favorable. I reviewed the technical aspects of periacetabular osteotomy (HOLGER) including risks, benefits, and expected course of recovery. Jennifer~understands that HOLGER is an inpatient procedure carried out through two medium sized incisions on the front and back of the hip joint. The hip socket is cut, realigned, and stabilized with 2 3 internal screws. Risks include infection, bleeding, injury to nearby nerves or vessels, stiffness, persistent pain, instability, failure of bony healing, implant related complications, and venous thromboembolic disease. Rarely, revision surgery may be required to address these problems. Risks, potential complications, side effects and recovery from surgical procedure were discussed in length. We explained how this surgery is an open procedure, and though patients tend to do well in the long-term, it involves significant pain in the first 2-4 weeks post-op and a rather lengthy rehab.~Overall recovery takes approximately 6 12~months depending on the extent of damage and degree of repair. Jennifer~understands that she~will undergo hip arthroscopy 1 week prior to the HOLGER to address damage inside the hip joint. Jennifer~understands that hip arthroscopy and HOLGER are two separate procedures that are best performed one week apart, with the arthroscopy commencing first to "tighten up" any pathology evident in the hip joint (labral repair, etc.) and the HOLGER open procedure occurring 7-10 days later to realign the acetabulum. I reviewed the technical aspects of hip arthroscopy including risks, benefits, and expected course of recovery. Jennifer~understands that hip arthroscopy is a minimally invasive outpatient procedure carried out through small incisions on the outer aspect of the hip joint. During surgery, the labral tear will be identified and either repaired or reconstructed~using bone anchors and suture material. Additionally, any excessive bone will be removed with a high-speed jarad to reshape the hip joint and restore normal anatomy. Risks include infection, bleeding, injury to nearby nerves or vessels, stiffness, persistent pain, instability, venous thromboembolic disease, and traction related complications including temporary foot numbness. Rarely, revision surgery may be required to address these problems. Overall recovery takes approximately 4~ 8~months depending on the extent of damage and degree of repair. In the event that the labral tissue quality is inadequate for successful repair and healing, Jennifer~understands that a labral reconstruction will be performed. This procedure entails placing a cadaver tissue graft within the hip joint and stabilizing it with bone anchors to build a new labrum. The overall recovery time for labral reconstruction is similar to that of labral repair, although the surgical procedure takes longer to perform. Jennifer~will review the info presented. In order to obtain more detailed information regarding the alignment, orientation, and shape of the bony hip and pelvis I will order a CT scan to be performed. The results of the CT scan, including femoral torsion and acetabular version measured values and 3D images, will aid me in deciding on the best treatment strategy and surgical pre-planning. 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 Olgais happy with this plan. I have also supplied her~with handouts, outlining the expected surgical treatment and rehab involved. I wish~Olgaall the best, ~~ Jr Meredith MD History Information - Allergies/Home Medication List Allergies/Adverse Reactions: No Known Allergies Allergy (Unverified 11/14/16 11:09) Home Medications: Amphet Asp and D/Amphet [Adderall 10 MG (*)] 10 mg PO TID 11/14/16 [Last Taken 12/05/16] Magnesium Oxide [Magnesium Oxide 400 mg (*)] 400 mg PO HS 11/14/16 [Last Taken 12/05/16] Zolpidem Tartrate [Ambien 5MG (*)] 10 mg PO HS 11/14/16 [Last Taken 12/18/16] Omeprazole 20 mg PO DAILY 12/19/16 [Last Taken 12/19/16 08:30] Otezla 06/01/17 [Last Taken Unknown] I have personally reviewed and updated: medical history - Social History Smoking Status: Never smoked Review of Systems Review of Systems: Physical Exam Physical Exam:
[2017-06-16] MEDS ORDERED: ACETAMINOPHEN 500 MG TAB PO ONE (06:08)
[2017-06-16] MEDS ORDERED: ceFAZolin 2 GM/SWFI 2 GM/20 ML SYR IVP ONE (06:08)
[2017-06-16] MEDS ORDERED: PREGABALIN 150 MG CAP PO ONE (06:08)
[2017-06-16] MEDS ORDERED: LR 1,000 ML IV ONE (06:11)
[2017-06-16] MEDS ORDERED: LIDOCAINE 1% 2 ML INJ ID PRN (06:11)
[2017-06-16] MEDS ORDERED: MIDAZOLAM 2 MG/2 ML VIAL IVP ONE (06:54)
--- NOTE | 2017-06-16 06:54 | PDANEPAE ---
ANE Past Medical History - Cardiovascular History Hx Hypertension: No Hx Arrhythmias: No Hx Chest Pain: No Hx Coronary Artery / Peripheral Vascular Disease: No Hx CHF / Valvular Disease: No Hx Palpitations: No - Pulmonary History Hx COPD: No Hx Asthma/Reactive Airway Disease: No Hx Recent Upper Respiratory Infection: No Hx Oxygen in Use at Home: No Hx Sleep Apnea: No Sleep Apnea Screening Result - Last Documented: Negative Pulmonary History Comment: RECENT BRONCHITIS TXD W/ABX AND PREDNISONE PT TO F/U PRESURGERY - Neurologic History Hx Cerebrovascular Accident: No Hx Seizures: No Hx Dementia: No - Endocrine History Hx Diabetes: No Hypothyroid: No Hyperthyroid: No Obesity: no - Renal History Hx Renal Disorders: Yes Renal History Comment: MULTIPLE UTIs - Liver History Hx Hepatic Disorders: No - Neurological & Psychiatric Hx Hx Neurological and Psychiatric Disorders: Yes Neurological / Psychiatric History Comment: ANXIETY & DEPRESSION - Cancer History Hx Cancer: No - Congenital Disorder History Hx Congenital Disorders: No - GI History GERD: no Hx Gastrointestinal Disorders: No - Other Health History Other Health History: PSORIASIS SCALP AND BACK - Chronic Pain History Chronic Pain: No - Surgical History Prior Surgeries: LABRAL REPAIR L HIP. HOLGER L HIP ANE Review of Systems Review of Systems: - Exercise capacity METS (RN): 5 METS ANE Patient History - Allergies Allergies/Adverse Reactions: hydrocodone [From Vicodin] Allergy (Verified 06/16/17 06:34) Hives - Home Medications Home Medications: Amphet Asp and D/Amphet [Adderall 10 MG (*)] 10 mg PO TID 11/14/16 [Last Taken 06/02/17] Magnesium Oxide [Magnesium Oxide 400 mg (*)] 400 mg PO HS 11/14/16 [Last Taken 06/09/17] Zolpidem Tartrate [Ambien 5MG (*)] 10 mg PO HS 11/14/16 [Last Taken 06/15/17] Omeprazole 20 mg PO DAILY 12/19/16 [Last Taken 05/17/17] Otezla 06/01/17 [Last Taken 06/14/17] - NPO status NPO Since - Liquids (Date): 06/16/17 NPO Since - Liquids (Time): 05:30 NPO Since - Solids (Date): 06/15/17 NPO Since - Solids (Time): 20:00 - Anes Hx Anes Hx: no prior problems - Smoking Hx Smoking Status: Never smoked - Alcohol Use Alcohol Use: Occasionally - Family Anes Hx Family Anes Hx: neg - N/A Family Hx Anesthesia Complications: NEG ANE Labs/Vital Signs - Vital Signs Blood Pressure: 113/87 Heart Rate: 90 Respiratory Rate: 14 O2 Sat (%): 91 Height: 167.64 cm Weight: 81.647 kg ANE Physical Exam - Airway Neck exam: FROM Mallampati Score: Class 2 Mouth exam: normal dental/mouth exam - Pulmonary Pulmonary: no respiratory distress, no rales or rhonchi, clear to auscultation - Cardiovascular Cardiovascular: regular rate and rhythym, no murmur, rub, or gallop - ASA Status ASA Status: II ANE Anesthesia Plan Anesthesia Plan: GA w LMA Total IV Anesthesia: No
[2017-06-16] MEDS ORDERED: fentaNYL 250 MCG/5 ML INJ ONE (07:17)
[2017-06-16] MEDS ORDERED: ONDANSETRON 4 MG/2 ML VIAL ONE (07:17)
[2017-06-16] MEDS ORDERED: PROPOFOL 200 MG/20 ML VIAL ONE (07:17)
[2017-06-16] MEDS ORDERED: KETOROLAC 30 MG/1 ML SDV ONE (07:18)
[2017-06-16] MEDS ORDERED: DEXAMETHASONE 4 MG/ML VIAL ONE (07:18)
[2017-06-16] MEDS ORDERED: LIDOCAINE 2% 5 ML SDV ONE (07:23)
[2017-06-16] MEDS ORDERED: BUPIVACAINE/EPI 0.5% 30 ML SDV ONE (07:27)
[2017-06-16] MEDS ORDERED: ONDANSETRON 4 MG/2 ML VIAL IVP PRN (07:54)
[2017-06-16] MEDS ORDERED: MEPERIDINE 25 MG/ML SYR IVP PRN (07:54)
[2017-06-16] MEDS ORDERED: NALOXONE HCL 0.4 MG/ML INJ IVP PRN (07:54)
[2017-06-16] MEDS ORDERED: ACETAMINOPHEN 500 MG TAB PO PRN (07:54)
[2017-06-16] MEDS ORDERED: LR 500 ML IV PRN (07:54)
[2017-06-16] MEDS ORDERED: oxyCODONE IR 5 MG TAB PO PRN (07:54)
[2017-06-16] MEDS ORDERED: fentaNYL 100 MCG/2 ML INJ ONE (08:16)
[2017-06-16] MEDS: fentaNYL 100 MCG/2 ML INJ IVP PRN ×2 (08:17→08:29)
[2017-06-16] MEDS ORDERED: oxyCODONE IR 5 MG TAB ONE (08:54)
[2017-06-16 09:58] VITALS: BP 100/70
== END 2017-06-16 10:05 | disposition home or self-care (01) ==
LOC: FSGY 05:52
PROVIDERS: ATTEND Orthopaedic Surgery Sports Medicine
PROC: BQ111ZZ Fluoroscopy of Left Hip using Low Osmolar Contrast (ICD-10-PCS; 2017-06-16)
PROC: 0QP504Z Removal of Internal Fixation Device from Left Acetabulum, Open Approach (ICD-10-PCS; principal; 2017-06-16 07:15)
DX: T84.84XA Pain due to internal orthopedic prosthetic devices, implants and grafts, initial encounter (principal); M25.552 Pain in left hip
CPT/HCPCS: J0690; J1100; J1885; J2250; J2405; J2704; J3010